=== PATIENT | male | born 1995 | race Caucasian/White ===

== ENCOUNTER → 2017-03-10 | Outpatient (CLI) | payer BC ==
[~2017-03-10] MED LIST: NO HOME MEDICATIONS
== END ==
LOC: COL.LAB 18:05 → ZCOL.LAB 18:05
DX: R19.7 Diarrhea, unspecified (principal)

== ENCOUNTER 2021-04-11 08:49 | Outpatient (RCR) | payer OTHER | END 2021-05-30 14:42 | disposition home or self-care (01) | LOC: WSOH 08:49 | DX: M25.531 Pain in right wrist (principal); Z98.890 Other specified postprocedural states; Y99.0 Civilian activity done for income or pay | CPT/HCPCS: 24091; A6549 ==